=== PATIENT | male | born 1940 | race Caucasian/White ===

== ENCOUNTER 2025-05-14 12:21 | Inpatient (IN) | payer MEDICARE ==
[~2025-05-14] VITALS: Ht 180.3 cm; Wt 79.7 kg
[2025-05-14 13:19] LABS: BASOPHILS ABSOLUTE AUTO 0.06 K/mm3 (0.00-0.23); BASOPHILS PERCENT AUTO 1 % (0-2); EOSINOPHILS ABSOLUTE AUTO 0.79 K/mm3 (0.00-0.68); EOSINOPHILS PERCENT AUTO 7 % (0-6); Hematocrit 34.5 % (37.0-53.0); Hemoglobin 10.8 g/dL (13.5-17.5); IMMATURE GRAN ABSOLUTE AUTO 0.07 K/mm3 (0.00-0.10); IMMATURE GRAN PERCENT AUTO 1 % (0-1); LYMPHOCYTES ABSOLUTE AUTO 2.98 K/mm3 (0.84-5.20); LYMPHOCYTES PERCENT AUTO 24 % (21-46); MONOCYTES ABSOLUTE AUTO 0.78 K/mm3 (0.16-1.47); MONOCYTES PERCENT AUTO 6 % (4-13); Mean Corpuscular HGB Conc 31.3 g/dL (31.5-36.5); Mean Corpuscular Volume 102 fL (80-100); NEUTROPHILS ABSOLUTE AUTO 7.55 K/mm3 (1.96-9.15); NEUTROPHILS PERCENT AUTO 62 % (41-73); NRBC ABSOLUTE 0.00 K/mm3 (0.00-0.02); NRBC Auto 0.0 /100 WBC (0.0-0.2); Platelet Count 448 K/mm3 (150-400); RDW Coefficient Variation 14.2 % (11.7-14.2); RDW Standard Deviation 53.0 fL (35.1-46.3)
[2025-05-14 13:44] LABS: Alanine Aminotransfer (ALT/SGP 13.0 U/L (12-78); Albumin, Blood 3.2 g/dL (3.4-5.0); Albumin/Globulin Ratio 0.7 (0.8-1.8); Anion Gap 10.0 mmol/L (3-11); Aspartate Aminotrans (AST/SGOT 5.0 U/L (12-37); Bilirubin, Total 0.6 mg/dL (0.1-1.0); Blood Urea Nitrogen 47.0 mg/dL (8-24); CO2, Blood 23.0 mmol/L (21-32); Calcium, Blood 10.1 mg/dL (8.5-10.1); Chloride, Blood 107.0 mmol/L (98-108); Creatinine, Blood 4.06 mg/dL (0.60-1.20); Globulin, Blood 4.7 g/dL (2.2-4.0); Glucose, Blood 113.0 mg/dL (70-99); Potassium, Blood 5.1 mmol/L (3.5-5.5); Sodium, Blood 135.0 mmol/L (136-145); Total Protein, Blood 7.9 g/dL (6.4-8.2)
[2025-05-14 14:35] LABS: Influenza A, PCR NEGATIVE (NEGATIVE); Influenza B, PCR NEGATIVE (NEGATIVE); Resp Syncytial Virus, PCR NEGATIVE (NEGATIVE); SARS-Cov-2 (COVID-19) PCR, MMC NEGATIVE (NEGATIVE)
[2025-05-14 14:41] LABS: Source, Urine Clean Catch
[2025-05-14 14:44] LABS: Bilirubin, Urine Neg (Neg); Color, Urine Yellow (P-Yellow); Glucose Qualitative, Urine Neg (Neg); Ketones, Urine Neg (Neg); Leukocyte Esterase, Urine 1+ (Neg); Protein, Urine 4+ (Neg); Specific Gravity, Urine 1.020 (1.003-1.022); Urobilinogen, Urine NORM (Normal)
[2025-05-14 14:51] LABS: Red Blood Cells, Urine 25-50 /hpf (0-2); White Blood Cells, Urine 25-50 /hpf (0-5)
[2025-05-14] MEDS ORDERED: VITAMIN D31000 UNI1 PO (14:56)
[2025-05-14] MEDS ORDERED: [UNRECOGNIZED DRUG - CODE] PO (14:56)
[2025-05-14] MEDS ORDERED: AMLO5 PO (14:56)
[2025-05-14] MEDS ORDERED: NITR.4SL SL (14:57)
[2025-05-14] MEDS ORDERED: LEVSOD100 PO (14:57)
[2025-05-14] MEDS ORDERED: PANT40 PO (14:58)
[2025-05-14] MEDS ORDERED: PRAV20 PO (14:58)
[2025-05-14] MEDS ORDERED: NS 1,000 ML IV SCH (15:40)
[2025-05-14] MEDS ORDERED: HYDROmorphone HCl/Pf 1MG SYR IV ONE (15:40)
[2025-05-14] MEDS ORDERED: FentaNYL Citrate 50 MCG/ML 2 ML Injection IV PRN (18:35)
[2025-05-14] MEDS ORDERED: FLU VACC TS2025(65UP)/MF59C/PF 45 MCG/0.5 ML SYRINGE IM SCH (18:35)
[2025-05-14] MEDS ORDERED: Ondansetron HCl 2 MG / ML 2ML Vial IV PRN (18:40)
[2025-05-14] MEDS ORDERED: Naloxone HCl 0.4MG / ML 1ML Vial IV PRN (18:40)
[2025-05-14] MEDS ORDERED: CefTRIAXone Sodium 1,000 MG in NS 100 ML IV SCH (19:00)
[2025-05-14] MEDS ORDERED: NS 250 ML IV PRN (20:55)
[2025-05-14] MEDS ORDERED: Lactobacil 2-S.Thermo-Bifido 1 1 Cap PO SCH (21:00)
[2025-05-14 21:06] VITALS: BP 139/76
--- NOTE | 2025-05-15 02:03 | NUR ---
ASSUMED CARE FROM JERE IN THE ER AT 2100. PATIENT CAME UP WITH BLANKET AND CLOTHING FROM HOME. ALERT AND ORIENTED. LR @125 INTO IV ACCESS. PT C/O PAIN, DR DRAKE ADDED PO OXYCODE AND PT WAS MEDICATED PER EMAR.
[2025-05-15 03:49] VITALS: BP 114/80
--- NOTE | 2025-05-15 04:51 | NUR ---
SHIFT SUMMARY: PATIENT REQUESTED PAIN MEDICATION A FEW TIMES. NO ADVERSE REACTIONS TO EITHER FENTANYL OR OXYCODONE. PATIENT INDEPENDENT TO THE BATHROOM. NO ACUTE EVENTS, VITALS STABLE.
[2025-05-15 05:41] LABS: BASOPHILS ABSOLUTE AUTO 0.05 K/mm3 (0.00-0.23); BASOPHILS PERCENT AUTO 1 % (0-2); EOSINOPHILS ABSOLUTE AUTO 0.80 K/mm3 (0.00-0.68); EOSINOPHILS PERCENT AUTO 8 % (0-6); Hematocrit 30.3 % (37.0-53.0); Hemoglobin 9.4 g/dL (13.5-17.5); IMMATURE GRAN ABSOLUTE AUTO 0.04 K/mm3 (0.00-0.10); IMMATURE GRAN PERCENT AUTO 0 % (0-1); LYMPHOCYTES ABSOLUTE AUTO 2.16 K/mm3 (0.84-5.20); LYMPHOCYTES PERCENT AUTO 21 % (21-46); MONOCYTES ABSOLUTE AUTO 0.89 K/mm3 (0.16-1.47); MONOCYTES PERCENT AUTO 9 % (4-13); Mean Corpuscular HGB Conc 31.0 g/dL (31.5-36.5); Mean Corpuscular Volume 102 fL (80-100); NEUTROPHILS ABSOLUTE AUTO 6.42 K/mm3 (1.96-9.15); NEUTROPHILS PERCENT AUTO 62 % (41-73); NRBC ABSOLUTE 0.00 K/mm3 (0.00-0.02); NRBC Auto 0.0 /100 WBC (0.0-0.2); Platelet Count 333 K/mm3 (150-400); RDW Coefficient Variation 14.3 % (11.7-14.2); RDW Standard Deviation 53.1 fL (35.1-46.3)
[2025-05-15 06:39] LABS: Alanine Aminotransfer (ALT/SGP 10.0 U/L (12-78); Albumin, Blood 2.8 g/dL (3.4-5.0); Albumin/Globulin Ratio 0.7 (0.8-1.8); Anion Gap 9.0 mmol/L (3-11); Aspartate Aminotrans (AST/SGOT 5.0 U/L (12-37); Bilirubin, Total 0.4 mg/dL (0.1-1.0); Blood Urea Nitrogen 48.0 mg/dL (8-24); CO2, Blood 24.0 mmol/L (21-32); Calcium, Blood 9.6 mg/dL (8.5-10.1); Chloride, Blood 108.0 mmol/L (98-108); Creatinine, Blood 3.98 mg/dL (0.60-1.20); Ferritin, Serum 440.0 ng/mL (26-388); Globulin, Blood 3.8 g/dL (2.2-4.0); Glucose, Blood 121.0 mg/dL (70-99); Magnesium, Blood 2.3 mg/dL (1.6-2.4); Potassium, Blood 5.0 mmol/L (3.5-5.5); Sodium, Blood 136.0 mmol/L (136-145); Total Iron Binding Capacity 186.0 ug/dL (250-450); Total Protein, Blood 6.6 g/dL (6.4-8.2)
[2025-05-15 07:21] VITALS: BP 111/76
[2025-05-15] MEDS ORDERED: Heparin Sodium,Porcine 5,000 UNIT/0.5 ML SDV SC SCH (09:00)
--- NOTE | 2025-05-15 09:25 | NUR ---
pt lyaing in bed eating breakfast, a/ox4, pleasant and cooperative with care, follows commands well, denies pain, states he's doing ok, lungs are clear dim in bases, resp even and unlabored, no cough noted, hrr, no edema noted, piv to rac, site is clear and patent, btx4, abd flat soft nontender, voids via bathroom, skin c/w/d, maew, mari, ambulates indep, call light in reach.
[2025-05-15] MEDS ORDERED: NS 1,000 ML IV SCH (14:45)
[2025-05-15 15:47] VITALS: BP 107/59
[2025-05-15 19:16] VITALS: BP 123/69
--- NOTE | 2025-05-15 19:31 | NUR ---
Pt has had a h/a throughout the day, started him on po dilaudid, this worked well for him, he also got a heating pad which helped with the pain, he ambulated around the unit with telecom assistant, mri of head pending but need to get records from [place], which charge nurse is working on. no further changes this shift, call light in reach.
--- NOTE | 2025-05-15 21:12 | NUR ---
Physician Contact: Resume Home Protonix Pt reports taking protonix BID at home for acid reflux and has not received any since being admitted on the . C/O having indigestion at this moment and requesting resumption of home med protonix. Discussed the above with Dr. Horton over the phone and received order to resume 40mg Protonix PO BID with first dose now.
[2025-05-16 02:50] VITALS: BP 109/69
--- NOTE | 2025-05-16 04:41 | NUR ---
SHIFT SUMMARY: PATIENT A+O X4 AND ABLE TO MAKE NEEDS KNOWN THROUGHOUT THIS SHIFT. PATIENT HAD NOTICABLE COMPLAINTS OF HIS HEAD CLAIMING IT TO BE "HEADACHE". MEDICATED PER EMAR, SEE FOR DETAILS. HEART WITHIN NORMAL PARAMETERS. LUNGS CLEAR IN UPPER LOBES, HOWEVER THIS FIELD TRAINING AGENT NOTICED DIMINISHED BREATH SOUNDS WITH SUBTLE CRACKLES IN BL LOWER LOBES. IV FLUIDS CONTINUED THROUGHOUT NIGHT RUNNING 75ML/HR. PATIENT HAS REMAINED AMBULATORY DURING THIS NIGHT. THIS PATIENT HAD ONE NOTICABLE EPISODE OF WEAKNESS/DIZZINESS WHEN AMBULATING THROUGH HALLS BACK TO ROOM. BED ALARM SET FOR SAFETY PURPOSES WITH PATIENT BEING EDUCATED TO CALL FOR ASSISTANCE. LEFT LOWER AND UPPER BOWEL HAVE NOTED TO HAVE DECREASED BOWEL TONES. PATIENT QUESTIONED ABOUT PASSING GAS STATING "I HAVE BEEN". PLAN TO DISCHARGE HOME ON HOSPICE UPON CONFIRMATION WITH PATIENT. PLAN OF CARE ONGOING AT THIS TIME, BED IN LOWEST POSITION, CALL LIGHT WITHIN REACH.
[2025-05-16 07:17] LABS: Anion Gap 10.0 mmol/L (3-11); Blood Urea Nitrogen 48.0 mg/dL (8-24); CO2, Blood 23.0 mmol/L (21-32); Calcium, Blood 9.2 mg/dL (8.5-10.1); Chloride, Blood 106.0 mmol/L (98-108); Creatinine, Blood 3.57 mg/dL (0.60-1.20); Glucose, Blood 87.0 mg/dL (70-99); Potassium, Blood 4.9 mmol/L (3.5-5.5); Sodium, Blood 134.0 mmol/L (136-145)
[2025-05-16 08:56] VITALS: BP 129/66
[2025-05-16 16:21] VITALS: BP 138/77
--- NOTE | 2025-05-16 18:04 | NUR ---
ASSUMED CARE OF PT. VERY PLEASENT A/O PT AWAITING [facility] FOR STENT INFORMATION IN ORDER TO HAVE MRI DONE. PT C/O HEADACHE AND COVERED VIA SEP. PT LUCIANO WELL AND FEEL ASLEEP FOR A COUPLE OF HOURS, CURRENTLY HAS MINIMAL PAIN. SPENT MOST OF DAY WITH VISITERS. PT IS APPROPRIATE AND ABLE TO MAKE NEEDS KNOWN
[2025-05-16 19:46] VITALS: BP 130/74
--- NOTE | 2025-05-17 05:26 | NUR ---
SHIFT SUMMARY: PATIENT A+O X4 AND ABLE TO MAKE NEEDS KNOWN. NO NEW OR ACUTE CHANGES DURING THIS SHIFT. PATIENT MEDICATED FOR PAIN X1 DURING THIS SHIFT. SEE EMAR FOR DETAILS. PLAN TO HAVE MRI TODAY ONCE APPROVAL HAS BEEN GRANTED. PLAN OF CARE ONGOING. BED IN LOWEST POSITION, CALL LIGHT WITHIN REACH.
[2025-05-17 05:34] LABS: Anion Gap 9.0 mmol/L (3-11); Blood Urea Nitrogen 46.0 mg/dL (8-24); CO2, Blood 24.0 mmol/L (21-32); Calcium, Blood 9.0 mg/dL (8.5-10.1); Chloride, Blood 107.0 mmol/L (98-108); Creatinine, Blood 3.87 mg/dL (0.60-1.20); Glucose, Blood 107.0 mg/dL (70-99); Potassium, Blood 5.1 mmol/L (3.5-5.5); Sodium, Blood 135.0 mmol/L (136-145)
[2025-05-17 06:21] VITALS: BP 121/67
[2025-05-17 08:46] VITALS: BP 142/68
[2025-05-17 16:54] VITALS: BP 132/87
--- NOTE | 2025-05-17 17:59 | NUR ---
A&Ox4. PLEASANT AND COOPERATIVE WITH CARE. CALLS APPROPRIATELY AND IS ABLE TO ADVOCATE NEEDS EFFECTIVELY. VSS. BREATHING EVEN AND UNLABORED c RA. CONTINENT OF BOWEL AND BLADDER; LBM ONE WEEK AGO. PATIENT DECLINES INTERVENTION AT THIS TIME.. TOLERATING DIET. IV LEFT AC. AMBULATES INDEPENDENTLY c SBA. MEDS WHOLE WITH WATER. HEAD PAIN MEDICATED PER EMR. PATIENT HAS STRICT I/O ORDER. BED IN LOWEST POSITION, CALL LIGHT WITHIN REACH, ALL NEEDS MET. REPORT TO ONCOMING NURSE.
[2025-05-17 19:26] VITALS: BP 132/79
[2025-05-18 03:03] VITALS: BP 133/70
--- NOTE | 2025-05-18 04:38 | NUR ---
SHIFT SUMMARY; PATIENT SLEPT IN SHORT INTERVALS, MEDICATED X 2 FOR PAIN. MRI NEG FOR JONATHAN. NO BM THIS SHIFT. REFUSED HEPARIN INJECTION. WEAK UP TO BR, NO BM,
[2025-05-18 07:29] VITALS: BP 120/71
[2025-05-18] MEDS ORDERED: HYDMOR2 PO (15:58)
[2025-05-18] MEDS ORDERED: PROM25 PO (15:58)
[2025-05-18 16:46] VITALS: BP 114/75
--- NOTE | 2025-05-18 19:16 | NUR ---
SHIFT SUMMARY- A&Ox3. PLEASANT AND COOPERATIVE WITH CARE. CALLS APPROPRIATELY AND IS ABLE TO ADVOCATE NEEDS EFFECTIVELY. PATIENT IS [place] AND DOES NOT HAVE HER AIDS. TELE NORMAL 79. BREATHING EVEN AND UNLABORED c RA. CONTINENT OF BOWEL AND BLADDER; LBM 05/18. TOLERATING DIET. IC L ARM. AMBULATES c SBA c FWW. MEDS WHOLE c FLUIDS. BED IN LOWEST POSITION, CALL LIGHT WITHIN REACH, ALL NEEDS MET. REPORT TO ONCOMING NURSE
== END 2025-05-18 19:15 | disposition home or self-care (01) | DRG 683 ==
LOC: ER 12:21 → ERHOLD 18:31 → MEDS 18:31
PROVIDERS: Internal Medicine; Physician Assistant; ADMIT Student in an Organized Health Care Education/Training Program
DX: N17.9 Acute kidney failure, unspecified (principal); C66.1 Malignant neoplasm of right ureter; N39.0 Urinary tract infection, site not specified; Z96.0 Presence of urogenital implants; Z85.528 Personal history of other malignant neoplasm of kidney; R91.1 Solitary pulmonary nodule; D63.1 Anemia in chronic kidney disease; Z66 Do not resuscitate; R51.9 Headache, unspecified; N18.5 Chronic kidney disease, stage 5; N13.9 Obstructive and reflux uropathy, unspecified; E86.0 Dehydration; Z88.5 Allergy status to narcotic agent; Z79.890 Hormone replacement therapy; Z85.51 Personal history of malignant neoplasm of bladder; Z79.899 Other long term (current) drug therapy; Z86.73 Personal history of transient ischemic attack (TIA), and cerebral infarction without residual deficits; I25.2 Old myocardial infarction; Z98.890 Other specified postprocedural states; Z23 Encounter for immunization
CPT/HCPCS: 36415; 70450; 70551; 74176; 80048; 80053; 81001; 82570; 82607; 82728; 82746; 83540; 83550; 83735; 84300; 85025; 87086; 87637; 93005; 93010; 96374; 99285-25; A9270; J0696; J1171; J1644; J2405; J3010; J7030; J7120

== ENCOUNTER 2025-05-22 19:09 | Inpatient (IN) | payer MEDICARE ==
[~2025-05-22] VITALS: Ht 180.3 cm; Wt 78.0 kg
[~2025-05-22 19:09] MED LIST: AMLO5 PO; HYDMOR2 PO; LEVSOD100 PO; NITR.4SL SL; PANT40 PO; PRAV20 PO; PROM25 PO; VITAMIN D31000 UNI1 PO; [UNRECOGNIZED DRUG - CODE] PO
[2025-05-22 19:49] LABS: BASOPHILS ABSOLUTE AUTO 0.06 K/mm3 (0.00-0.23); BASOPHILS PERCENT AUTO 0 % (0-2); EOSINOPHILS ABSOLUTE AUTO 0.24 K/mm3 (0.00-0.68); EOSINOPHILS PERCENT AUTO 2 % (0-6); Hematocrit 33.0 % (37.0-53.0); Hemoglobin 10.1 g/dL (13.5-17.5); IMMATURE GRAN ABSOLUTE AUTO 0.12 K/mm3 (0.00-0.10); IMMATURE GRAN PERCENT AUTO 1 % (0-1); LYMPHOCYTES ABSOLUTE AUTO 0.88 K/mm3 (0.84-5.20); LYMPHOCYTES PERCENT AUTO 7 % (21-46); MONOCYTES ABSOLUTE AUTO 0.77 K/mm3 (0.16-1.47); MONOCYTES PERCENT AUTO 6 % (4-13); Mean Corpuscular HGB Conc 30.6 g/dL (31.5-36.5); Mean Corpuscular Volume 101 fL (80-100); NEUTROPHILS ABSOLUTE AUTO 11.29 K/mm3 (1.96-9.15); NEUTROPHILS PERCENT AUTO 85 % (41-73); NRBC ABSOLUTE 0.00 K/mm3 (0.00-0.02); NRBC Auto 0.0 /100 WBC (0.0-0.2); Platelet Count 411 K/mm3 (150-400); RDW Coefficient Variation 14.1 % (11.7-14.2); RDW Standard Deviation 51.9 fL (35.1-46.3)
[2025-05-22 19:54] LABS: Alanine Aminotransfer (ALT/SGP 12.0 U/L (12-78); Albumin, Blood 3.0 g/dL (3.4-5.0); Albumin/Globulin Ratio 0.8 (0.8-1.8); Anion Gap 11.0 mmol/L (3-11); Aspartate Aminotrans (AST/SGOT 6.0 U/L (12-37); Bilirubin, Total 0.6 mg/dL (0.1-1.0); Blood Urea Nitrogen 52.0 mg/dL (8-24); CO2, Blood 22.0 mmol/L (21-32); Calcium, Blood 9.8 mg/dL (8.5-10.1); Chloride, Blood 107.0 mmol/L (98-108); Creatinine, Blood 4.1 mg/dL (0.60-1.20); Globulin, Blood 3.8 g/dL (2.2-4.0); Glucose, Blood 120.0 mg/dL (70-99); Potassium, Blood 5.3 mmol/L (3.5-5.5); Sodium, Blood 135.0 mmol/L (136-145); Total Protein, Blood 6.8 g/dL (6.4-8.2)
[2025-05-22] MEDS ORDERED: Ondansetron HCl 2 MG / ML 2ML Vial IV ONE (20:20)
[2025-05-22] MEDS ORDERED: Magnesium Hydroxide Conc 10 ML UDC PO PRN (22:45)
[2025-05-22] MEDS ORDERED: FLU VACC TS2025(65UP)/MF59C/PF 45 MCG/0.5 ML SYRINGE IM SCH (22:50)
[2025-05-22] MEDS ORDERED: CefTRIAXone Sodium 1,000 MG in NS 100 ML IV SCH (23:00)
[2025-05-23] MEDS ORDERED: MetroNIDAZOLE 500MG/NS 100 ml 100 ML IV SCH
--- NOTE | 2025-05-23 00:14 | NUR ---
PT HERE VIA [facility]KAS FROM ER. PT TRANSFERRED TO MEDICAL FLOOR BED - PT DECONDITIONED. CALL LIGHT WITHIN REACH. DUTCH MARIN PRESENT IN THE ROOM - ASSISTING WITH ADMIT. PT IS ALERT AND ORIENTED X3. PT RECENTLY DISCHARGED FROM HOSPITAL.
[2025-05-23 00:20] VITALS: BP 146/78
[2025-05-23] MEDS ORDERED: AMLO5 PO (00:44)
[2025-05-23] MEDS ORDERED: PRAV20 PO (00:45)
[2025-05-23] MEDS ORDERED: Naloxone HCl 0.4MG / ML 1ML Vial IV PRN (00:50)
[2025-05-23] MEDS ORDERED: FentaNYL Citrate 50 MCG/ML 2 ML Injection IV PRN (00:50)
[2025-05-23] MEDS ORDERED: Glycerin Adult Supp 1 EA PR ONE (01:00)
[2025-05-23] MEDS ORDERED: HYDROmorphone HCl/Pf 1MG SYR IV PRN (01:45)
--- NOTE | 2025-05-23 01:59 | NUR ---
PT UP TO BRP WITH WALKER, AND 1 PERSON ASSIST TO BRP, 2 PERSON ASSIST BACK TO BED WITH A WALKER. PT HAD A LOOSE BM, AND REPORTS ALSO URINATED - PT REFUSING TO USE THE BSC FOR BM. PT WEAK, SHAKY WITH AMBULATION BACK TO BED - 2 PERSON ASSIST WITH WALKER. NIECE, CONTINUES IN ROOM - SUPPORTIVE OF CARE OF PT. PT CHANGED TO DNR STATUS - PT REPORTS HE WANTS DNR NOT FULL CODE. PT HAS COOL FEET/HANDS. PT/NIECE REPORTED UPON ADMIT WHEN THE SCD'S WERE GOING TO BE PLACED ON THAT HE HAS A "BLOOD CLOT" TO HIS LEFT CALF, AND HE IS UNABLE TO TAKE BLOOD THINNERS BECAUSE IT "CAUSES HIS TUMORS TO BLEED" - NOTIFIED DR. DRAKE AND SCD'S WERE DC'D. PT ALSO REPORTS THAT FENTANYL DOESN'T WORK FOR HIM. NEW ORDER OBTAINED FOR IV DILAUDED. CALL LIGHT WITHIN REACH. BED IN LOW POSITION. PT NPO.
[2025-05-23 04:28] VITALS: BP 112/61
[2025-05-23] MEDS ORDERED: Ondansetron HCl 2 MG / ML 2ML Vial IV PRN (04:30)
[2025-05-23 04:53] LABS: BASOPHILS ABSOLUTE AUTO 0.06 K/mm3 (0.00-0.23); BASOPHILS PERCENT AUTO 0 % (0-2); EOSINOPHILS ABSOLUTE AUTO 0.32 K/mm3 (0.00-0.68); EOSINOPHILS PERCENT AUTO 2 % (0-6); Hematocrit 32.0 % (37.0-53.0); Hemoglobin 9.9 g/dL (13.5-17.5); IMMATURE GRAN ABSOLUTE AUTO 0.11 K/mm3 (0.00-0.10); IMMATURE GRAN PERCENT AUTO 1 % (0-1); LYMPHOCYTES ABSOLUTE AUTO 3.06 K/mm3 (0.84-5.20); LYMPHOCYTES PERCENT AUTO 21 % (21-46); MONOCYTES ABSOLUTE AUTO 1.10 K/mm3 (0.16-1.47); MONOCYTES PERCENT AUTO 8 % (4-13); Mean Corpuscular HGB Conc 30.9 g/dL (31.5-36.5); Mean Corpuscular Volume 101 fL (80-100); NEUTROPHILS ABSOLUTE AUTO 9.97 K/mm3 (1.96-9.15); NEUTROPHILS PERCENT AUTO 68 % (41-73); NRBC ABSOLUTE 0.00 K/mm3 (0.00-0.02); NRBC Auto 0.0 /100 WBC (0.0-0.2); Platelet Count 417 K/mm3 (150-400); RDW Coefficient Variation 14.0 % (11.7-14.2); RDW Standard Deviation 51.6 fL (35.1-46.3)
[2025-05-23 05:30] LABS: Alanine Aminotransfer (ALT/SGP 10.0 U/L (12-78); Albumin, Blood 2.8 g/dL (3.4-5.0); Albumin/Globulin Ratio 0.7 (0.8-1.8); Anion Gap 11.0 mmol/L (3-11); Aspartate Aminotrans (AST/SGOT 7.0 U/L (12-37); Bilirubin, Total 0.6 mg/dL (0.1-1.0); Blood Urea Nitrogen 56.0 mg/dL (8-24); CO2, Blood 23.0 mmol/L (21-32); Calcium, Blood 9.7 mg/dL (8.5-10.1); Chloride, Blood 106.0 mmol/L (98-108); Creatinine, Blood 4.09 mg/dL (0.60-1.20); Globulin, Blood 3.8 g/dL (2.2-4.0); Glucose, Blood 104.0 mg/dL (70-99); Potassium, Blood 5.0 mmol/L (3.5-5.5); Sodium, Blood 135.0 mmol/L (136-145); Total Protein, Blood 6.6 g/dL (6.4-8.2)
--- NOTE | 2025-05-23 06:36 | NUR ---
SHIFT SUMMARY - NO ACUTE CHANGES SINCE ADMIT LAST NOC. PT HAS SLEPT FOR SEVERAL HOURS TONIGHT. PT REPORTED NAUSEA X1 - MEDICATED WITH ZOFRAN WITH GOOD RELIEF. PT HAD 2 LOOSE STOOLS, REFUSED BSC USE - AMBULATED WITH 1-2 PERSON ASSIST WITH A WALKER TO BRP. PT REPORTED URINATION WITH BOTH EPISODES - UNABLE TO MEASURE URINE. PT DID USE THE URINAL THIS AM - APPX 25 CC OF TEA COLORED URINE OUT. PT REPORTS A LEFT LE BLOOD CLOT - SCDS NOT PLACED, AND PER PT AND NIECE, PT IS UNABLE TO TAKE BLOOD THINNERS BECAUSE THEY CAUSE HIS TUMORS TO BLEED. CALL LIGHT WITHIN REACH. BED IN LOW POSITION. PT IS NPO. PT DID REPORT RELIEF OF LOWER ABDOMINAL DISCOMFORT AFTER USE OF BRP X2.
[2025-05-23 07:46] VITALS: BP 111/64
[2025-05-23] MEDS ORDERED: Polyethylene Glycol 3350 17 gm PO PRN (08:05)
[2025-05-23] MEDS ORDERED: Docusate Sodium/Senna 1 Tab PO SCH (09:00)
[2025-05-23] MEDS ORDERED: Lactulose 200 GM/300 ML Enema 300ML BTL PR ONE (09:20)
[2025-05-23 15:02] VITALS: BP 126/75
--- NOTE | 2025-05-23 15:50 | NUR ---
ROUNDED ON PATIENT TO DISCUSS GOALS OF CARE. NEL AT BEDSIDE. PATIENT REPORTED THAT HE MOVED HER RECENTLY FROM [place]. HE IS CURRENTLY LIVING WITH FAMILY. HE REPORTED THAT HE RECIEVED CANCER DIAGNOSIS IN [place] AND HE FEELS LIKE HE HAS "FALLEN THROUGH THE CRACKS" HE HAS NEVER MET WITH ONCOLOGY. HE REPORTED THAT HE HAS HAD INCOSTIANT BOWEL MOVMENTS AND NEVER FEELS LIKE HE FULLY VOIDS. HE MET WITH UROLOGY AND DR. LIU TODAY. PLAN IS FOR ENEMA THEN POSS SURG INTERVENTION IF NO IMPROVMENT. WE DISCUSSED POLST AND ADVANCE DIRECTIVE. DISCUSSED DIFFERENCE BETWEEN DOCUMENTS. WE REVIEWED CODE STATUS AND MEDICAL INTERVENTIONS ON POLST. PATIENT WANTS TO WAIT UNTIL CLOSER TO DISCHARGE TO FILL OUT HE IS UNSURE WEATHER HE WANTS TO PRUSUE CURATIVE TREATMENT OR COMFORT.
--- NOTE | 2025-05-23 17:07 | NUR ---
END OF SHIFT. PATIENT A&O4, 2 PERSON ASSIST TO BATHROOM OR BSC WITH FWW DUE TO WEAKNESS. PATIENT USES CALL LIGHT AND IS ABLE TO MAKE NEEDS KNOWN. BOWEL CARE TODAY WITH SOME IMPROVEMENT. ATTENDS IN PLACE. PATIENT REFUSING TO WEAR CONTINIOUS BIOX MONITOR. OXYGEN SATS >90% FOR THIS SHIFT. ON CLEAR LIQUID DIET TOLERATED. HAD LARGE BOWEL MOVEMENT ON THIS SHIFT AND IS FEELING MUCH BETTER, SOME NAUSEA STILL. NO OTHER CONCERNS FOR THIS SHIFT.
[2025-05-23 19:54] VITALS: BP 119/77
--- NOTE | 2025-05-24 03:16 | NUR ---
SHIFT SUMMARY PATIENT IS ALERT AND ORIENTED. PATIENT HAS HAD NO ACUTE EVENTS THIS SHIFT. VITAL SIGNS REVIEWED. PATIENT HAS HAD NO COMPLAINTS OF SOB, NAUSEA OR VOMITTING. PATIENT HAS COMPLAINED OF PAIN AND MEDICATED PER EMAR. PATIENT HAS BEEN HAVING SEVERAL BOWL MOVEMENTS THIS SHIFT. BED IN LOCKED AND LOWEST POSITION.
[2025-05-24 04:18] VITALS: BP 105/72
--- NOTE | 2025-05-24 04:48 | NUR ---
SHIFT SUMMARY PATIENT ADMITTED FOR COLITIS. ASSUMED CARE MID SHIFT. ALERT AND ORIENTED X4. VSS. TOLERATING MEDICATION. PATIENT HAD MULTIPLE BOWEL MOVEMENTS THIS SHIFT PER REPORT. NO ACUTE OVERNIGHT EVENTS. BED RAILS UP X2. BED IN LOWEST POSITION FOR SAFETY. CALL LIGHT WITHIN REACH.
[2025-05-24 07:15] VITALS: BP 125/72
[2025-05-24 07:54] LABS: Hematocrit 29.1 % (37.0-53.0); Hemoglobin 9.3 g/dL (13.5-17.5); Mean Corpuscular HGB Conc 32.0 g/dL (31.5-36.5); Mean Corpuscular Volume 100 fL (80-100); NRBC ABSOLUTE 0.00 K/mm3 (0.00-0.02); NRBC Auto 0.0 /100 WBC (0.0-0.2); Platelet Count 348 K/mm3 (150-400); RDW Coefficient Variation 14.2 % (11.7-14.2); RDW Standard Deviation 51.8 fL (35.1-46.3)
[2025-05-24] MEDS ORDERED: NS 250 ML IV PRN ×2 (08:00→20:45)
[2025-05-24 08:16] LABS: Anion Gap 11.0 mmol/L (3-11); Blood Urea Nitrogen 59.0 mg/dL (8-24); CO2, Blood 23.0 mmol/L (21-32); Calcium, Blood 9.3 mg/dL (8.5-10.1); Chloride, Blood 108.0 mmol/L (98-108); Creatinine, Blood 4.15 mg/dL (0.60-1.20); Glucose, Blood 93.0 mg/dL (70-99); Potassium, Blood 5.0 mmol/L (3.5-5.5); Sodium, Blood 137.0 mmol/L (136-145)
[2025-05-24] MEDS ORDERED: OXYC5 PO (10:16)
[2025-05-24] MEDS ORDERED: FURO40 PO (10:18)
[2025-05-24] MEDS ORDERED: VITAMIN B122500 MC1 PO (10:19)
[2025-05-24] MEDS ORDERED: POTA10T PO (10:19)
[2025-05-24] MEDS ORDERED: Vitamin D1000 UNI1 PO (10:19)
[2025-05-24] MEDS ORDERED: CLOP75 PO (10:19)
--- NOTE | 2025-05-24 11:14 | NUR ---
Spiritual care visit conducted. The patient is sitting up in bed and alert. He tells me about his medical problems, his temporary housing at his sister's, the work being done on the trailer that he lived in, and about the other family and friend support that he has. 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 He tells me about the peace and strength that he feels from that paulina and how grateful he remains in the midst of very challenging circumstances. He states that he is thankful for the ability to use the bathroom without assistance and other reasons. I provided therapeutic listening, theological insights, and prayer. The patient responded well and showed signs of being encouraged in his paulina.
[2025-05-24] MEDS ORDERED: Ondansetron HCl 2 MG / ML 2ML Vial IV PRN (13:00)
--- NOTE | 2025-05-24 15:09 | NUR ---
PALLIATIVE CARE VISIT: PRIMARY RN REQUESTED VISIT TO DISCUSS SYMPTOM MANAGEMENT AND FURTHER DISCUSSION ON GOC. PT AGREEABLE TO VISIT. PT IS ABLE TO PARTICIPATE IN MEANINGFUL CONVERSATION. SYMPTOMS: PT STATES HE HAS NAUSEA CAUSING "DRY HEAVES", INDUCED WITH ORAL INTAKE. PT HAS PAIN TO HIS TAILBONE AND HEADACHE. 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 PT HAS NOT HAD MIGRAINES IN SEVERAL YEARS BUT DESCRIBES CURRENT STREET ALMOST LIKE HIS MIGRAINES FROM THE PAST. PT REPORTS HEATING PAD HELPS WITH STREET PAIN BUT DOES NOT COMPLETELY ALLEVIATE PAIN. CONSULTED WITH [facility] PHARMACIST. SHE RECOMMENDS DEXAMETHASONE 4 - 8 MG PO DAILY TO BID TO START. WILL HELP WITH NAUSEA, PAIN, GASTROPARESIS. PT AGREEABLE TO TRIALLING THIS MEDICATION. CALLED DR. BOWER AND HE IS AGREEABLE TO MEDICATION AND WILL PLACE ORDER. GOC: PT STATES HE DOES NOT WANT CHEMO OR RADIATION THERAPY BUT HE WANTS TO KNOW IF THERE ARE OTHER TREATMENT OPTIONS AVAILABLE. WE DISCUSSED PROGRESSION OF ILLNESS AND SYMPTOM MANAGEMENT. PT HAS NO PLAN TO ADDRESS THIS. WE DISCUSSED HOSPICE A SERVICE TO AID IN SYMPTOM MANAGEMENT, AND ALL THE OTHER BENEFITS OF HOSPICE. PT STATES IT IS AN OPTION BUT HE WANTS TO HEAR WHAT ONCOLOGY HAS TO SAY. NEL JUDD PRESENT FOR PART OF MEETING. DUTCH MET OUTSIDE OF ROOM AND STATES SHE WOULD BE AGREEABLE TO HOSPICE SERVICES BUT WILL ULTIMATELY DO WHAT HER UNCLE WANTS. UPDATED PRIMARY RN.
[2025-05-24 15:52] VITALS: BP 115/74
--- NOTE | 2025-05-24 17:45 | NUR ---
NOTE PT ALERT, FORGETFUL AT TIMES. PT WAS C/O OF NAUSEA THIS MORNING. MEDCIATED WITH ZOFRA 4MG. HE THEN WANTED ORAL PAIN MEDICATION. HE THEN HAD A SMALL EMESIS. 1 BM TODAY. ABD SOFT, NON TENDER. FAMILY RELATED THAT HE HASN'T BEEN EATING/DRINKING AT HOME. PT HAS BEEN USING A KPAD ON HIS PILLOW TO HELP WITH PAIN. HAVE OFFERED WATER, STARRY, JELLO, CRACKERS AND PASTOR DANTE. HE HASN'T WANTED TO TRY ANYTHING. HE DECLINED THE DECRADRON D/T NAUSEA. CALLED DR BOWER EARLIER AND RECEIVED AN ORDER FOR ZOFRAN 8MG. MEDICATED X1. THAT DIDN'T HELP EITHER. TALKED WITH PT/FAMILY ABOUT TOLERANCE TO ORAL PAIN MEDICATIONS. PT RELATED THAT HE DOES BETTER WITH OXYCODONE VS DILAUDID. CALLED DR BOWER AND RECEIVED A NEW ORDER FOR OXYCODONE. PT HAS DECLINED MULTIPLE OFFERS. OFFERED A SHOWER MULTIPLE TIMES THAT HE HAS DECLINED. BED LINENS CHANGED WHEN HE GOT UP TO THE BATHROOM. BED LOW LOCKED. CALL LIGHT WITH IN REACH. CARE ONGOING.
[2025-05-24 19:17] VITALS: BP 119/63
[2025-05-25 04:53] VITALS: BP 114/70
--- NOTE | 2025-05-25 05:26 | NUR ---
SHIFT SUMMARY PATIENT IS ALERT AND ORIENTED. PATIENT HAS HAD NO ACUTE EVENTS THIS SHIFT. PAITENT HAS HAD NO COMPLAINTS OF SOB, NAUSEA, PAIN OR VOMITTING. PATIENT HAS HAD 1 BM THIS SHIFT. ABX INFUSED ORDERED. PATIENT HAS BEEN SLEEPING MOST OF THIS SHIFT. BED IN LOCKED AND LOWEST POSITION. CALL LIGHT IN PLACE.
[2025-05-25 08:19] VITALS: BP 98/44
[2025-05-25] MEDS ORDERED: NS 1,000 ML IV SCH (09:30)
[2025-05-25] MEDS ORDERED: Metoclopramide HCl 5MG / ML 2ML Vial IV PRN (09:35)
--- NOTE | 2025-05-25 09:48 | NUR ---
ONCOLOGY CALLED [facility]. THEY ARE PLANNING ON SEEING PT THIS AFTERNOON. CARE ONGOING.
[2025-05-25] MEDS ORDERED: Dexamethasone Sodium Phosphate 4 MG/ML 1ML Vial IV ONE (10:10)
--- NOTE | 2025-05-25 11:20 | NUR ---
The patient is very sleepy so my visit is brief. He tels me that he is doing well emotionally but his body is struggling. He welcomes prayer and grabs my hand. I gladly supply a prayer as I kneel beside the bed. The patient is tearful at the prayer and states that he appreciates the prayer and the visit. I let him go back to resting.
[2025-05-25 15:31] VITALS: BP 123/63
[2025-05-25 16:30] VITALS: BP 98/67
[2025-05-25] MEDS ORDERED: HYDROmorphone HCl/Pf 1MG SYR IV ONE (16:30)
[2025-05-25 16:36] VITALS: BP 89/63
[2025-05-25 16:46] VITALS: BP 96/63
[2025-05-25] MEDS ORDERED: LORazepam 2 MG/ML 1ML Injection IV PRN (17:45)
[2025-05-25] MEDS ORDERED: HYDROmorphone HCl/Pf 1MG SYR IV PRN (17:45)
--- NOTE | 2025-05-25 19:52 | NUR ---
CHEST PAIN PT C/O OF CHEST PAIN. HE HAS A HISTORY OF ANGINA. TAKES NITROGLYCERIN FREQUENTLY. BP DOWN, HR UP. CALLED DR BOWER. ORDER FOR EKG RECEIVED. ORDER FOR DILAUDID 0.5MG D/T PT STATED ALLERGY OF MORPHINE. EKG SHOWED ATRIAL FLUTTER HR 130'S. 0.9%NS BOLUS OF 500ML GIVEN. TALKED WITH PT/NIECE. IN ORDER TO GIVE HIM A RATE CONTROLLER HE WOULD NEED TO GO TO CRITICAL CARE D/T BLOOD PRESSURE SUPPORT. IV FLUID BOLUS DID NOT IMPROVE BP. THE PRIOR PLAN IS TO GO HOME WITH HOSPICE. PT/FAMILY CHOICE TO CHANGE TO COMFORT CARE. UNCONNECT MONITORS AND MEDICATE FOR COMFORT. DR BOWER CALLED FOR COMFORT CARE ORDERS. TALKED WITH [facility]. DILAUDID 0.5 MG X1 WAS EFFECTIVE FOR CHEST PAIN. RESOLVED. PT TOOK ABOUT AN HOUR NAP AND AWAKENED COMFORTABLE. ABD PAIN IMPROVED WELL. FAMILY WILL BE SPENDING THE NIGHT AT BEDSIDE. CARE ONGOING.
--- NOTE | 2025-05-26 03:29 | NUR ---
OIL FIELD TECHNICIAN SUMMARY PT WAS PLACED ON COMFORT CARE ON DAY SHIFT YESTERDAY, WITH PLANS ON GOING HOME ON HOSPICE LATER TODAY. PT HAS BEEN RESTING QUIETLY AT INTERVALS THIS SHIFT. REQUESTED ICE CRAM AROUND HS, TOLERATED SOME. HAS BEEN AWAKE AND UP TO BATHROOM A FEW TIMES WITH ASSIST FROM STAFF DUE TO WEAKNESS. NEICE AT BEDSIDE FOR COMPANIONSHIP. SLEEVE SEPARATOR REPORTED NEICE SHARED CONCERNS THAT PT MAY NEED MORE CARE THAN THEY COULD PROVIDE WHEN HOME. CHARGE NURSE NOTIFIED AND ASKED THAT IT WILL BE PASSED ON TO DAY SHIFT FOR CONSIDERATION AT TIME OF DISCHARGE TO BE ADDRESSED. HAS BEEN AWAKE AT INTERVALS WITH C/O PAIN AND NAUSEA. RECEIVED MEDS FOR SUCH, SEE MAR FOR DETAILS. CURRENTLY RESTING QUIELTY WITH O2 ON PER NC. CALL LIGHT IN REACH, RAILS UP X 2 AND BED IN LOW POSITIN FOR SAFETY.
[2025-05-26] MEDS ORDERED: Dexamethasone Sodium Phosphate 4 MG/ML 1ML Vial IV SCH (09:00)
--- NOTE | 2025-05-26 11:57 | NUR ---
PLACED PREVENTATIVE MEPILEX ON SACRUM WHEN HE GOT UP TO GO TO THE BATHROOM.
--- NOTE | 2025-05-26 12:19 | NUR ---
CASE CONFRENCE- PT REQUESTING CLARIFICATION TO NEW ORDERS FOR THIS PATIENT. CALLED PROVIDER WITH PT PRESENT. HE REFERED TO DISCUSS WITH CARE COORDINATION FOR CLARIFICATION TO REQUEST. PT ZULEMA AND THIS PCRN TO CARE COORDINATION OFFICE TO DISCUSS.
--- NOTE | 2025-05-26 12:22 | NUR ---
1122 LARGE GROUP OF FAMILY INTO PATIENTS ROOM. FAMILY COMFORT CARE CART FROM KITCHEN ARRIVED SHORTLY AFTER AT 1200.
--- NOTE | 2025-05-27 05:20 | NUR ---
PT WAS A HEAVY 2 PERSON ASSIST TO THE RESTROOM, AFTER THAT TRIP I ENCOURAGED BSC ONLY. PT REQUESTED ZOFRAN FOR NAUSEA, HE WAS DRY HEAVING BUT NO EMESIS NOTED. MEDICATED ONCE FOR PAIN PER REQUEST. NO ACUTE EVENTS NOTED. STABLE OVER NIGHT.
--- NOTE | 2025-05-27 12:50 | NUR ---
DISCHARGE NOTE: WENT OVER DISCHARGE WITH THE PATIENT. HE WAS ALREADY DRESSED AFTER HIS SHOWER THIS MORNING. POWER GLIDE REMOVED. BELONGINGS COLLECTED. MEDICAL TRANSPORT ARRIVED VIA WHEELCHAIR; FACE SHEET PROVIDED. NO SIGNS OR SYMPTOMS OF DISTRESS WITH DISCHARGE
== END 2025-05-27 12:47 | disposition hospice, home (50) | DRG 686 ==
LOC: ER 19:09 → MEDS 19:10
PROVIDERS: Emergency Medicine; Internal Medicine; ADMIT Student in an Organized Health Care Education/Training Program
DX: C67.6 Malignant neoplasm of ureteric orifice (principal); N18.6 End stage renal disease; N13.30 Unspecified hydronephrosis; N17.9 Acute kidney failure, unspecified; C79.9 Secondary malignant neoplasm of unspecified site; C65.9 Malignant neoplasm of unspecified renal pelvis; Z66 Do not resuscitate; Z51.5 Encounter for palliative care; K59.00 Constipation, unspecified; C67.9 Malignant neoplasm of bladder, unspecified; K52.9 Noninfective gastroenteritis and colitis, unspecified; G43.909 Migraine, unspecified, not intractable, without status migrainosus; K52.89 Other specified noninfective gastroenteritis and colitis; D63.1 Anemia in chronic kidney disease; I25.2 Old myocardial infarction; Z85.528 Personal history of other malignant neoplasm of kidney; Z90.6 Acquired absence of other parts of urinary tract; Z88.5 Allergy status to narcotic agent; Z79.890 Hormone replacement therapy; Z79.899 Other long term (current) drug therapy; Z87.891 Personal history of nicotine dependence; Z86.73 Personal history of transient ischemic attack (TIA), and cerebral infarction without residual deficits; Z99.2 Dependence on renal dialysis
CPT/HCPCS: 36415; 74176; 80048; 80053; 83605; 83690; 85025; 85027; 93005; 93010; 94762; 96361; 96365; 96375; 96376; 99285-25; A9270; G0378; J0696; J1100; J1171; J2405; J2765; J7030; J7050; J7120